=== PATIENT | female | born 1955 ===

== ENCOUNTER 2021-07-19 07:42 | Emergency (ER) | payer MEDICAID ==
[~2021-07-19] VITALS: Ht 170.2 cm; Wt 83.2 kg
[2021-07-19] MEDS ORDERED: morphine 4 MG/ML inj SYRINge IV ONE (08:10)
[2021-07-19] MEDS ORDERED: normal saline 1000ML IV soln IVB ONE (08:10)
[2021-07-19 08:18] LABS: BASOPHILS % (AUTO) 0.5 % (0-1); EOSINOPHILS # (AUTO) 0.1 X10'3 (0-0.9); EOSINOPHILS % (AUTO) 0.9 % (0-6); HEMATOCRIT 31.4 % (35.0-45.0); HEMOGLOBIN 10.7 g/dl (12.0-16.0); LYMPHOCYTES # (AUTO) 0.6 X10'3 (1.1-4.8); LYMPHOCYTES % (AUTO) 10.4 % (21-51); MEAN CORPUSCULAR HEMOGLOBIN 29.4 PG (27.0-31.0); MEAN CORPUSCULAR HGB CONC 34.3 g/dL (33.0-36.5); MEAN PLATELET VOLUME 8.4 FL (7.4-10.4); MONOCYTES # (AUTO) 0.4 X10'3 (0-0.9); MONOCYTES % (AUTO) 6.6 % (2-12); NEUTROPHILS # (AUTO) 4.9 X10'3 (1.8-7.7); NEUTROPHILS % (AUTO) 81.6 % (42-75); PLATELET COUNT 212 X10'3 (140-440); RED BLOOD COUNT 3.65 X10'6 (4.20-5.60); RED CELL DISTRIBUTION WIDTH 14.6 % (11.5-14.5)
[2021-07-19] MEDS ORDERED: metoclopramide 5 mg/ml inj IV ONE (08:20)
[2021-07-19 08:32] LABS: ALANINE AMINOTRANSFERASE 78 U/L (12-78); ALBUMIN 3.5 G/DL (3.4-5.0); ALBUMIN/GLOBULIN RATIO 0.8 (1.1-1.5); ALKALINE PHOSPHATASE 51 IU/L (46-116); ANION GAP 13 (8-16); ASPARTATE AMINO TRANSFERASE 34 U/L (10-37); BILIRUBIN,TOTAL 0.4 MG/DL (0.1-1.0); BLOOD UREA NITROGEN 14 MG/DL (7-18); BUN/CREATININE RATIO 12.2 (6.6-38.0); CALCIUM 8.9 MG/DL (8.5-10.1); CHLORIDE 98 MMOL/L (99-107); CREATININE 1.15 MG/DL (0.40-0.90); GLUCOSE 188 MG/DL (70-104); LIPASE 269 U/L (73-393); POTASSIUM 3.7 MMOL/L (3.5-5.1); SODIUM 137 MMOL/L (135-145); TOTAL CARBON DIOXIDE 25.8 MMOL/L (24-32); TOTAL PROTEIN 7.9 G/DL (6.4-8.2); eGFR 48 ML/MIN
[2021-07-19 08:54] LABS: CLARITY,URINE CLOUDY (Clear); COLOR,URINE YELLOW (Yellow); GLUCOSE, URINE NEGATIVE (Neg); KETONES,URINE TRACE mg/dl (Neg); LEUKOCYTE ESTERASE ,URINE NEGATIVE (Neg); NITRITES, URINE NEGATIVE (Neg); OCCULT BLOOD,URINE LARGE (Neg); PROTEIN,URINE 100 mg/dl (Neg); UROBILINOGEN,URINE 0.2 E.U/dL (0.2-1.0)
[2021-07-19 09:04] LABS: UA COLLECTION TYPE CLN CATCH MIDSTREAM
[2021-07-19 09:05] LABS: BACTERIA,URINE FEW /HPF (Neg); MUCUS STRANDS FEW /LPF (Neg); RBC,URINE TNTC /HPF (0-2); SQUAMOUS EPITHELIAL CELL,UR FEW /LPF (FEW); WBC,URINE 0-4 /HPF (0-4)
[2021-07-19 09:06] LABS: URIC ACID CRYSTALS 3+ /HPF (NEGATIVE)
--- NOTE | 2021-07-19 09:12 | NUR ---
PT. BACK FROM CT. NO ISSUES.
[2021-07-19] MEDS ORDERED: FLO0.4C PO (09:16)
[2021-07-19] MEDS ORDERED: NAPR-56 PO (09:16)
[2021-07-19] MEDS ORDERED: ACET-3068 PO (09:17)
[2021-07-19 09:47] VITALS: BP 160/88
== END 2021-07-19 09:49 | disposition home or self-care (01) ==
LOC: ER 07:42
DX: N20.0 Calculus of kidney (principal); R10.84 Generalized abdominal pain; R11.2 Nausea with vomiting, unspecified; I10 Essential (primary) hypertension; E11.9 Type 2 diabetes mellitus without complications; Z79.899 Other long term (current) drug therapy
CPT/HCPCS: 36415; 74176; 80053; 81001; 83690; 85025; 86140; 96374; 96375; 99284; J2270; J2765; J7030